=== PATIENT | female | born 1950 | race Caucasian/White ===

== ENCOUNTER 2016-07-29 16:00 | Emergency (ER) | payer OTHER ==
[~2016-07-29] VITALS: Ht 147.3 cm; Wt 80.3 kg
[~2016-07-29 16:00] MED LIST: ASPI-605 PO; BENA20TA2 PO; OXYB5TAB11 PO
[2016-07-29 16:08] VITALS: BP 144/82
== END 2016-07-29 16:32 | disposition home or self-care (01) ==
LOC: ER 16:08
DX: R21 Rash and other nonspecific skin eruption (principal); I10 Essential (primary) hypertension; F41.9 Anxiety disorder, unspecified; Z88.0 Allergy status to penicillin; Z88.1 Allergy status to other antibiotic agents; Z88.8 Allergy status to other drugs, medicaments and biological substances; Z79.82 Long term (current) use of aspirin
CPT/HCPCS: 99283; A4606; Z7610

== ENCOUNTER 2016-10-09 17:37 | Emergency (ER) | payer OTHER ==
[~2016-10-09] VITALS: Ht 147.3 cm; Wt 81.6 kg
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
--- NOTE | 2016-10-09 17:45 | NUR ---
MD WILEY AT BEDSIDE
[2016-10-09 18:06] LABS: BASOPHILS # (AUTO) 0.1 /CMM (0.0-0.2); EOSINOPHILS # (AUTO) 0.1 /CMM (0.0-0.7); EOSINOPHILS % (AUTO) 0.7 % (0.0-6.0); HEMATOCRIT 44 % (33-45); HEMOGLOBIN 14.7 g/dL (11.5-14.8); LYMPHOCYTES # (AUTO) 1.5 /CMM (0.8-4.8); LYMPHOCYTES % (AUTO) 19.4 % (20.0-44.0); MEAN CORPUSCULAR HEMOGLOBIN 31 PG (26.0-33.0); MEAN CORPUSCULAR HGB CONC 33 g/dl (31.0-36.0); MEAN CORPUSCULAR VOLUME 92 fL (82-100); MONOCYTES # (AUTO) 0.6 /CMM (0.1-1.30); MONOCYTES % (AUTO) 7.7 % (2.0-12.0); NEUTROPHILS # (AUTO) 5.6 /CMM (1.8-8.9); NEUTROPHILS % (AUTO) 71.2 % (43.0-81.0); PLATELET COUNT (AUTO) 72 /CMM (150-450); RDW COEFFICIENT OF VARIATION 12.8 (11.5-15.0); WHITE BLOOD COUNT (AUTO) 7.9 K/uL (4.3-11.0)
[2016-10-09 18:18] LABS: CALCIUM, SERUM 8.7 mg/dL (8.5-10.1); CREATININE 1.4 mg/dL (0.6-1.3); POTASSIUM 3.8 mmol/L (3.5-5.1)
[2016-10-09 18:19] LABS: APPEARANCE,URINE Clear (CLEAR); BILIRUBIN,URINE Negative (NEGATIVE); BLOOD, URINE Negative Ery/uL (NEGATIVE); COLOR,URINE Yellow (YELLOW); KETONES,URINE Negative (NEGATIVE); LEUKOCYTE ESTERASE ,URINE Small (NEGATIVE); NITRITE, URINE Negative (NEGATIVE); PROTEIN,URINE Trace mg/dl (NEGATIVE); UGLUCOSE Negative (NEGATIVE)
[2016-10-09 18:24] LABS: ALBUMIN 3.7 g/dL (3.4-5.0); BILIRUBIN,DIRECT 0.1 mg/dL (0.0-0.2); BILIRUBIN,TOTAL 0.4 mg/dL (0.2-1.0); TOTAL PROTEIN, SERUM 7.4 g/dL (6.4-8.2)
[2016-10-09 18:27] LABS: INR 1.02 (0.87-1.13); PROTHROMBIN TIME 10.6 SECS (9.5-12.7)
[2016-10-09 18:28] LABS: ADD URINE CULTURE YES; BACTERIA,URINE Few /HPF (None Seen); RBC,URINE 0-2 /HPF (0-2); SQUAMOUS EPITHELIAL CELL,UR Moderate /HPF (None Seen); URINE AMORPHOUS URATE Few /HPF (None Seen)
[2016-10-09 18:45] LABS: BAND % (MANUAL) 7 % (0.0-5.0); BASOPHILS % (MANUAL) 2 % (0.0-2.0); LYMPHOCYTES % (MANUAL) 24 % (16-48); MONOCYTES % (MANUAL) 9 % (0-11.0); NEUTROPHILS % (MANUAL) 58 (42-76); PLATELET ESTIMATE DECREASED
--- NOTE | 2016-10-09 18:56 | NUR ---
pt was taken to ct
--- NOTE | 2016-10-09 18:58 | NUR ---
Report given to Wan LLOYD
--- NOTE | 2016-10-09 19:06 | NUR ---
RECEIVED REPORT FROM PREMA TAMEZ FOR YAO. PT CURRENTLY IN CT.
--- NOTE | 2016-10-09 20:48 | NUR ---
DR. WILEY AT BEDSIDE SPEAKING TO PT REGARDING RESULTS
--- NOTE | 2016-10-09 20:52 | NUR ---
IV removed. Catheter intact and site benign. Pressure and 4x4 applied to site. No bleeding noted. Patient discharged to home in stable condition. Written and verbal after care instructions given. Patient verbalizes understanding of instruction. ambulatory with a steady gait
[2016-10-09 20:53] VITALS: BP 116/68
== END 2016-10-09 20:55 | disposition home or self-care (01) ==
LOC: ER 18:46
DX: M54.2 Cervicalgia (principal); M54.5 Low back pain; N28.1 Cyst of kidney, acquired; N39.0 Urinary tract infection, site not specified; I10 Essential (primary) hypertension; G89.29 Other chronic pain; M25.511 Pain in right shoulder; F41.9 Anxiety disorder, unspecified; E78.00 Pure hypercholesterolemia, unspecified; B19.20 Unspecified viral hepatitis C without hepatic coma; K59.00 Constipation, unspecified; Z79.82 Long term (current) use of aspirin; Z90.710 Acquired absence of both cervix and uterus; Z88.0 Allergy status to penicillin; Z88.1 Allergy status to other antibiotic agents; Z88.8 Allergy status to other drugs, medicaments and biological substances; G43.909 Migraine, unspecified, not intractable, without status migrainosus; V43.52XA Car driver injured in collision with other type car in traffic accident, initial encounter; Y93.89 Activity, other specified; Y92.413 State road as the place of occurrence of the external cause; Y99.8 Other external cause status
CPT/HCPCS: 36415; 71010; 72125; 74176; 80048; 80076; 81001; 83690; 85025; 85730; 87086; 99285; A4606; Z7610; 81000-TC

== ENCOUNTER 2022-05-04 17:48 | Emergency (ER) | payer OTHER ==
[~2022-05-04] VITALS: Ht 147.3 cm; Wt 72.6 kg
[~2022-05-04 17:48] MED LIST changes: -BENA20TA2 PO; +BENA20TA9 PO; -OXYB5TAB11 PO; +OXYB5TAB16 PO
--- NOTE | 2022-05-04 18:00 | NUR ---
RECEIVED PT 71 YRS FEMALE CAME FROM HOME C/O CHEST PAIN ON AND OFF FOR 2 DAYS AWKE AND ALERT
--- NOTE | 2022-05-04 18:05 | NUR ---
UA SENT TO LAB
--- NOTE | 2022-05-04 18:14 | NUR ---
INSERTED ANGO CATHETER G 20 ON RT AC BLOOD DROW AND SENT TO LAB
--- NOTE | 2022-05-04 18:30 | NUR ---
COVID SWAB SENT TO LAB
--- NOTE | 2022-05-04 19:44 | NUR ---
HAND OFF MANOHAR LLOYD
[2022-05-04 19:58] LABS: CALCIUM, SERUM 9.1 mg/dL (8.5-10.1); CARBON DIOXIDE 32 mmol/L (21-32); CHLORIDE 103 mmol/L (98-107); GLUCOSE 114 mg/dL (74-106); POTASSIUM 3.6 mmol/L (3.5-5.1); SODIUM SERUM 138 mmol/L (136-145); UREA NITROGEN, BLOOD 16 mg/dL (7-18)
[2022-05-04 20:19] LABS: BASOPHILS % (AUTO) 0.2 % (0.0-2.0); EOSINOPHILS % (AUTO) 0.6 % (0.0-6.0); HEMATOCRIT 39 % (33-45); HEMOGLOBIN 13.1 g/dL (11.5-14.8); LYMPHOCYTES # (AUTO) 1.9 K/uL (0.8-4.8); LYMPHOCYTES % (AUTO) 26.6 % (20.0-44.0); MEAN CORPUSCULAR HGB CONC 33 g/dl (31.0-36.0); MEAN CORPUSCULAR VOLUME 93 fL (82-100); MONOCYTES # (AUTO) 0.5 K/uL (0.1-1.30); MONOCYTES % (AUTO) 7.1 % (2.0-12.0); NEUTROPHILS # (AUTO) 4.6 K/uL (1.8-8.9); NEUTROPHILS % (AUTO) 65.5 % (43.0-81.0); PLATELET COUNT (AUTO) 70 K/uL (150-450); RED BLOOD CELL COUNT(AUTO) 4.25 MIL/uL (4.0-5.2)
[2022-05-04] MEDS ORDERED: IOHEXOL-300 100 ML VIAL IV ONE (20:42)
[2022-05-04] MEDS ORDERED: CT SWABBABLE VALVE TRANS SET 1 EA INFUS.SET MC ONE (20:43)
[2022-05-04] MEDS ORDERED: IV NS 0.9% 250 ML IV ONE (20:43)
[2022-05-04] MEDS ORDERED: KETOROLAC TROMETHAMINE 15 MG/ML VIAL ONE (20:48)
[2022-05-04] MEDS: KETOROLAC TROMETHAMINE INJ 30 MG/ML VIAL IV ONE (20:50)
[2022-05-04 22:10] LABS: LYMPHOCYTES % (MANUAL) 30 % (16-48); MONOCYTES % (MANUAL) 6 % (0-11.0); NEUTROPHILS % (MANUAL) 64 (42-76)
[2022-05-04] MEDS ORDERED: CEFTRIAXONE 1GM BAG (ER ONLY) 50 ML IV ONE (23:02)
[2022-05-04] MEDS ORDERED: ONDANSETRON HCL/PF 4 MG/2 ML VIAL ONE (23:02)
[2022-05-04] MEDS ORDERED: MORPHINE SULFATE INJ 4 MG/ML DISP.SYRIN ONE (23:02)
[2022-05-04 23:08] LABS: BILIRUBIN,URINE NEGATIVE (NEGATIVE); COLOR,URINE YELLOW (YELLOW); LEUKOCYTE ESTERASE ,URINE NEGATIVE (NEGATIVE); NITRITE, URINE NEGATIVE (NEGATIVE); PROTEIN,URINE NEGATIVE (NEGATIVE); UGLUCOSE NEGATIVE (NEGATIVE); UROBILINOGEN,URINE 0.2 EU/dL (0.2)
[2022-05-04] MEDS: CEFTRIAXONE 1GM BAG (ER ONLY) 1 GM/50 ML PIGGYBACK IV ONE (23:15)
[2022-05-04] MEDS: MORPHINE SULFATE INJ 2 MG/ML DISP.SYRIN IV ONE (23:15)
[2022-05-04] MEDS: ONDANSETRON HCL/PF 4 MG/2 ML VIAL IV ONE (23:15)
--- NOTE | 2022-05-04 23:51 | NUR ---
us tech at bedside
[2022-05-05 00:16] LABS: ALBUMIN 3.7 g/dL (3.4-5.0); BILIRUBIN,DIRECT 0.1 mg/dL (0.0-0.2); BILIRUBIN,TOTAL 0.4 mg/dL (0.2-1.0); TOTAL PROTEIN, SERUM 6.8 g/dL (6.4-8.2)
[2022-05-05] MEDS ORDERED: MORPHINE SULFATE INJ 4 MG/ML DISP.SYRIN ONE (02:04)
[2022-05-05] MEDS: MORPHINE SULFATE INJ 2 MG/ML DISP.SYRIN IV ONE (02:09)
--- NOTE | 2022-05-05 02:20 | NUR ---
Patient discharged to home in stable condition. Written and verbal after care instructions given. Patient verbalizes understanding of instruction.IV removed. Catheter intact and site benign. Pressure and 4x4 applied to site. No bleeding noted.
[2022-05-05 02:28] VITALS: BP 134/75
== END 2022-05-05 02:20 | disposition home or self-care (01) ==
LOC: ER 17:56
DX: R10.32 Left lower quadrant pain (principal); R07.9 Chest pain, unspecified; D69.6 Thrombocytopenia, unspecified; R10.11 Right upper quadrant pain; Z20.822 Contact with and (suspected) exposure to COVID-19; Z86.19 Personal history of other infectious and parasitic diseases; E66.9 Obesity, unspecified; Z68.33 Body mass index [BMI] 33.0-33.9, adult; I10 Essential (primary) hypertension; Z88.0 Allergy status to penicillin; Z88.1 Allergy status to other antibiotic agents; Z91.041 Radiographic dye allergy status; Z90.710 Acquired absence of both cervix and uterus; Z79.82 Long term (current) use of aspirin; Z87.440 Personal history of urinary (tract) infections
CPT/HCPCS: 99285; 74177; 96365; 96375; 76705; 71045; 87426; 93005; 85025; 80048; 80076; 81003; 36415; 84484; 96376; 85007; J2270 ×2; J2405; J7050; J0696; Q9967; J1885; C9803

== ENCOUNTER 2022-08-05 19:19 | Emergency (ER) | payer OTHER ==
[~2022-08-05] VITALS: Ht 149.9 cm; Wt 64.0 kg
--- NOTE | 2022-08-05 20:12 | NUR ---
BIB FRIEND FOR C/O "BEING SICK FOR THE PAST FOR 2 WEEKS". AND SOB TODAY. AAOX4. ITCHINESS AT FACE AND ARMS, COUGH AND RUNNY NOSE, ABLE TO EXPOTORATE PHLEGM BROWN IN COLOR, DIFFICULTY IN WALKING DUE TO SOB, HEADACHE RATED 10/10. PT TOOK COUGH SYRUP AT HOME. VITALS CHECKED. ATTACHED TO MONITOR.
[2022-08-05] MEDS ORDERED: diphenhydrAMINE HCL 25 MG CAPSULE PO ONE (21:30)
[2022-08-05] MEDS ORDERED: diphenhydrAMINE HCL 25 MG CAPSULE ONE (21:44)
[2022-08-05 21:45] LABS: BASOPHILS % (AUTO) 0.1 % (0.0-2.0); EOSINOPHILS % (AUTO) 0.5 % (0.0-6.0); HEMATOCRIT 41 % (33-45); HEMOGLOBIN 13.5 g/dL (11.5-14.8); LYMPHOCYTES # (AUTO) 0.9 K/uL (0.8-4.8); LYMPHOCYTES % (AUTO) 13.5 % (20.0-44.0); MEAN CORPUSCULAR HGB CONC 33 g/dl (31.0-36.0); MEAN CORPUSCULAR VOLUME 91 fL (82-100); MONOCYTES # (AUTO) 0.4 K/uL (0.1-1.30); MONOCYTES % (AUTO) 6.5 % (2.0-12.0); NEUTROPHILS # (AUTO) 5.5 K/uL (1.8-8.9); NEUTROPHILS % (AUTO) 79.4 % (43.0-81.0); PLATELET COUNT (AUTO) 118 K/uL (150-450); RED BLOOD CELL COUNT(AUTO) 4.47 MIL/uL (4.0-5.2); WHITE BLOOD COUNT (AUTO) 6.9 K/uL (4.3-11.0)
[2022-08-05 22:21] LABS: CALCIUM, SERUM 9.4 mg/dL (8.5-10.1); CARBON DIOXIDE 28 mmol/L (21-32); CHLORIDE 101 mmol/L (98-107); CREATININE 1.2 mg/dL (0.6-1.3); GLUCOSE 123 mg/dL (74-106); POTASSIUM 3.4 mmol/L (3.5-5.1); SODIUM SERUM 137 mmol/L (136-145); UREA NITROGEN, BLOOD 24 mg/dL (7-18)
[2022-08-05 22:36] LABS: ALANINE AMINOTRANSFERASE 23 U/L (12-78); ALBUMIN 3.3 g/dL (3.4-5.0); ALKALINE PHOSPHATASE 54 U/L (46-116); ASPARTATE AMINOTRANSFERASE 20 U/L (15-37); BILIRUBIN,DIRECT 0.2 mg/dL (0.0-0.2); BILIRUBIN,TOTAL 0.4 mg/dL (0.2-1.0); TOTAL PROTEIN, SERUM 7.2 g/dL (6.4-8.2)
[2022-08-05] MEDS ORDERED: BENZ-13 PO (23:39)
[2022-08-05] MEDS ORDERED: CEFP200T14 PO (23:39)
[2022-08-05] MEDS ORDERED: PRED50TA PO (23:39)
[2022-08-06 00:14] VITALS: BP 135/73
--- NOTE | 2022-08-06 00:14 | NUR ---
Patient discharged to home in stable condition. Written and verbal after care instructions given. Patient verbalizes understanding of instruction.
[2022-08-09] MEDS ORDERED: IBUPROFEN 400 MG TABLET ONE (01:30)
== END 2022-08-06 00:15 | disposition home or self-care (01) ==
LOC: ER 19:23
DX: R06.02 Shortness of breath (principal); R05.9 Cough, unspecified; I10 Essential (primary) hypertension; F41.9 Anxiety disorder, unspecified; M54.50 Low back pain, unspecified; M25.519 Pain in unspecified shoulder; G89.29 Other chronic pain; E78.00 Pure hypercholesterolemia, unspecified; Z20.822 Contact with and (suspected) exposure to COVID-19; Z79.899 Other long term (current) drug therapy; Z79.82 Long term (current) use of aspirin; Z91.040 Latex allergy status; Z88.0 Allergy status to penicillin; Z88.1 Allergy status to other antibiotic agents
CPT/HCPCS: 99285; 71045; 87426; 93005; 85025; 80048; 80076; 36415; 84484 ×2; 83880; Q0163; C9803

== ENCOUNTER 2022-08-08 18:38 | Emergency (ER) | payer OTHER ==
[~2022-08-08] VITALS: Ht 147.3 cm; Wt 64.0 kg
[~2022-08-08 18:38] MED LIST changes: +BENZ-13 PO; +CEFP200T14 PO; +PRED50TA PO
--- NOTE | 2022-08-08 23:27 | NUR ---
BIBS FOR C/O WORSENING SOB AND HARDTIME BREATHING SINCE HER LAST VISIT AT [facility] 3 DAYS AGO. PT A/OX4. TOLERATING R/A WELL WITH NO RESP DISTRESS. SAFETY MEASURES IN PLACE. CONNECTED PT TO POX AND MONITOR
--- NOTE | 2022-08-08 23:31 | NUR ---
URINE COLLECTED AND SENT TO LAB
--- NOTE | 2022-08-09 00:16 | NUR ---
RT CALLED FOR BREATHING TX
[2022-08-09] MEDS ORDERED: ALBUTEROL FS 2.5 MG/0.5 ML VIAL.NEB ONE (00:28)
[2022-08-09] MEDS ORDERED: ALBUTEROL FS 2.5 MG/0.5 ML VIAL.NEB NEB ONE (00:30)
--- NOTE | 2022-08-09 00:37 | NUR ---
RT AT PT'S BEDSIDE FOR BREATHING TX
[2022-08-09] MEDS ORDERED: IBUPROFEN 400 MG TABLET PO ONE (01:30)
[2022-08-09] MEDS ORDERED: ALBU6.7H9 INH (01:32)
--- NOTE | 2022-08-09 01:50 | NUR ---
Patient discharged to home in stable condition. Written and verbal after care instructions given. Patient verbalizes understanding of instruction.
[2022-08-09 02:46] VITALS: BP 130/75
== END 2022-08-09 02:46 | disposition home or self-care (01) ==
LOC: ER 18:50
DX: R05.9 Cough, unspecified (principal); G43.909 Migraine, unspecified, not intractable, without status migrainosus; I10 Essential (primary) hypertension; G89.29 Other chronic pain; E78.00 Pure hypercholesterolemia, unspecified; K59.00 Constipation, unspecified; Z79.899 Other long term (current) drug therapy; Z60.2 Problems related to living alone; Z88.0 Allergy status to penicillin; Z88.1 Allergy status to other antibiotic agents; Z91.040 Latex allergy status
CPT/HCPCS: 71045-TC

== ENCOUNTER 2022-09-15 16:18 | Emergency (ER) | payer OTHER ==
[~2022-09-15] VITALS: Ht 147.3 cm; Wt 64.9 kg
[~2022-09-15 16:18] MED LIST changes: +ALBU6.7H9 INH
--- NOTE | 2022-09-15 16:30 | NUR ---
BIBS FOR HEADACHE. A/O X 3, ABLE TO MAKE NEEDS KNOWN, TOLERATING WELL ON ROOM AIR
--- NOTE | 2022-09-15 17:00 | NUR ---
Paul denson in [facility] - 09/15/22 at 1801 by MARY BLOOD SAMPLES OBTAINED
[2022-09-15] MEDS ORDERED: SUMATRIPTAN SUCCINATE 25 MG TABLET PO ONE (18:30)
[2022-09-15 18:34] LABS: CALCIUM, SERUM 9.3 mg/dL (8.5-10.1); CARBON DIOXIDE 26 mmol/L (21-32); CHLORIDE 105 mmol/L (98-107); CREATININE 0.9 mg/dL (0.6-1.3); GLUCOSE 112 mg/dL (74-106); POTASSIUM 3.2 mmol/L (3.5-5.1); SODIUM SERUM 138 mmol/L (136-145); UREA NITROGEN, BLOOD 21 mg/dL (7-18)
[2022-09-15] MEDS ORDERED: SUMATRIPTAN SUCCINATE 25 MG TABLET ONE (18:36)
[2022-09-15 18:40] LABS: ALANINE AMINOTRANSFERASE 15 U/L (12-78); ALBUMIN 3.5 g/dL (3.4-5.0); ALKALINE PHOSPHATASE 50 U/L (46-116); ASPARTATE AMINOTRANSFERASE 14 U/L (15-37); BILIRUBIN,DIRECT 0.2 mg/dL (0.0-0.2); BILIRUBIN,TOTAL 0.7 mg/dL (0.2-1.0)
--- NOTE | 2022-09-15 19:44 | NUR ---
DR CHUNG MADE AWARE THAT PATIENT IS COMPLAINING OF RIGHT SIDE HEADACHE, RIGHT SHOULDER AND RIGHT FLANK PAIN SCALE OF 8/10.
[2022-09-15 19:50] LABS: BASOPHILS % (AUTO) 0.3 % (0.0-2.0); EOSINOPHILS % (AUTO) 0.4 % (0.0-6.0); HEMATOCRIT 37 % (33-45); HEMOGLOBIN 12.3 g/dL (11.5-14.8); LYMPHOCYTES # (AUTO) 1.5 K/uL (0.8-4.8); LYMPHOCYTES % (AUTO) 25.4 % (20.0-44.0); MEAN CORPUSCULAR HGB CONC 33 g/dl (31.0-36.0); MEAN CORPUSCULAR VOLUME 93 fL (82-100); MONOCYTES # (AUTO) 0.4 K/uL (0.1-1.30); MONOCYTES % (AUTO) 7.4 % (2.0-12.0); NEUTROPHILS # (AUTO) 3.8 K/uL (1.8-8.9); NEUTROPHILS % (AUTO) 66.5 % (43.0-81.0); PLATELET COUNT (AUTO) 65 K/uL (150-450); RED BLOOD CELL COUNT(AUTO) 3.99 MIL/uL (4.0-5.2); WHITE BLOOD COUNT (AUTO) 5.7 K/uL (4.3-11.0)
[2022-09-15 20:09] LABS: BAND % (MANUAL) 2 % (0.0-5.0); LYMPHOCYTES % (MANUAL) 29 % (16-48); MONOCYTES % (MANUAL) 4 % (0-11.0); NEUTROPHILS % (MANUAL) 65 (42-76)
--- NOTE | 2022-09-15 20:29 | NUR ---
Patient discharged to home in stable condition. Written and verbal after care instructions given. Patient verbalizes understanding of instruction.
[2022-09-15 20:44] VITALS: BP 133/78
== END 2022-09-15 20:45 | disposition home or self-care (01) ==
LOC: ER 16:26
DX: R07.89 Other chest pain (principal); I10 Essential (primary) hypertension; G43.909 Migraine, unspecified, not intractable, without status migrainosus; F41.9 Anxiety disorder, unspecified; E78.00 Pure hypercholesterolemia, unspecified; Z90.49 Acquired absence of other specified parts of digestive tract; Z60.2 Problems related to living alone; Z79.899 Other long term (current) drug therapy; Z79.82 Long term (current) use of aspirin; Z91.040 Latex allergy status; Z88.0 Allergy status to penicillin
CPT/HCPCS: 36415; 70450-TC; 71045-TC; 80048-TC; 80076-TC; 84484-TC; 85025-TC